=== PATIENT | male | born 1995 | race Caucasian/White ===

== ENCOUNTER 2020-03-22 23:51 | Emergency (ER) | payer BC, SELFPAY ==
--- NOTE | 2020-03-22 23:45 | RT.EKG_ITS ---
APPROVED REPORT Exam: Resting ECG Patient Location: E HR:78 bpm ECG Measurements Heart Rate 78 AXIS WI 164 P 67 QRSd 104 QRS 59 QT 375 T 42 QTc 428 <Conclusion> Sinus rhythm...normal P axis, V-rate 60- 99
[2020-03-22 23:54] VITALS: BP 159/94; PULSE 88; RESP 16; TEMP 36.8; O2SAT 99
[2020-03-22 23:56] VITALS: RESP 16
--- NOTE | 2020-03-22 23:57 | ED.GENADUL_ITS ---
Discharge Plan Disposition Patient Disposition: HOME Condition: Stable Discharge Details Chief Complaint: Chest Pain Clinical Impression: Chest pain Primary Care Provider: Felix Stephenson ED Provider: Juan Huggins Home Meds and New Rx's Prescriptions: No Action No Known Home Meds RF: 0 Discharge Instructions Instructions: Chest Pain (ED) Additional Instructions: your blood work and ekg did not show any evidence of a heart attack, I suspect your symptoms could be due to stress I placed you on our follow up list to get set up with a primary care provider and to recheck your blood pressure since it was mildly elevated here if you feel more ill, have worsening pain or difficulty breathing return to the emergency department Medical Decision Making 24 yo male with no chronic medical problems, is a smoker, comes in with cc of constant mild chest tightness for 3 days. Denies radiation of pain and no diaphoresis, n/v, no dyspnea and no fevers. States he has been under a lot of stress recently. He arrives hd stable speaking in full sentences with clear lungs, no jvd or leg swelling. Denies drug use . No calf pain, Clear lungs without murmurs. I suspect this is anxiety induced chest pain from his stress, heart score is 2 so will check troponin. Wells low and perc negative so doubt PE. Normal vascular exam and no tearing chest pain so doubt dissection. Clear lungs, no pleuritic pain, no cough or fever so unlikely ptx vs pna and do not feel xray indicated. pt remains hd stable speaking in full sentences in no distress conversing normally. Labs unremarkable, given over 4 hours of symptoms do not feel delta troponin indicated. Will have him f/u with a pcp regarding his htn here and return precautions given Differential Diagnosis Differential Diagnosis: nstemi, stress, anxiety Lab Data Lab results reviewed: Yes I reviewed the patient's lab results. ECG Data Attestation: I personally reviewed and interpreted this ECG (s) as follows: Prior ECG tracings: not available for review Interpretation: sinus rhythm, rate of 78, pr 164, no acute st t wave ischemic findings HPI General Mode of arrival: ambulatory . Date/Time Provider Initiated Documentation: 03/22/20 23:52 . Limitations to Documentation: no limitations . Information obtained by: patient . History of Present Illness 24 year old M presents to the emergency department with the chief complaint of chest tightness, described as mild, Patient started experiencing this day(s) (3) and it has been constant. No relieving factors improve symptom(s), No exacerbating factors reported . Patient did receive the following treatments prior to arrival, none Related Data Home Medications Medication Instructions Recorded Confirmed Unknown [No Known Home Meds] 03/22/20 03/22/20 Allergies Allergy/AdvReac Type Severity Reaction Status Date / Time No Known Allergies Allergy Unverified 03/22/20 23:56 General Stated Complaint: Chest Pain JOSE: 2 Review of Systems All systems reviewed & are unremarkable except as noted in HPI and below Constitutional Constitutional: Denies chills, Denies fever(s) and Denies weakness Cardiovascular Cardiovascular: Denies dyspnea Respiratory Respiratory: Denies cough and Denies dyspnea Gastrointestinal Gastrointestinal: Denies abdominal pain, Denies nausea and Denies vomiting Genitourinary Genitourinary: Denies dysuria Musculoskeletal Musculoskeletal: Denies joint swelling Integumentary/Breasts Skin/Breast: Denies rash Neurologic Neurologic: Denies weakness [facility] Social History Smoking/Tobacco Use Status: Current every day Alcohol Intake: never Drug use: Never Substance use type: does not use Do you feel safe at home: Yes Do you feel safe in your relationship?: Yes Exam Const General: no acute distress Orientation: alert HENMT Head: normal to inspection Ears: external ears normal General nose exam: external nose normal Mouth: moist mucous membranes Eyes General: appearance normal, both eyes and all related structures Neck Neck: normal visual inspection Resp Effort & Inspection: normal respiratory effort and able to speak in complete sentences Cardio Rate: regular rate Skin General skin exam: no rashes or lesions noted Neuro General: patient alert and patient oriented x3 Extrem General: normal to inspection Psych Mental Status: mental status grossly normal Course Vital Signs Vital signs: Vital Signs Temperature 36.8 C 03/22/20 23:54 Pulse 88 03/22/20 23:54 Respiratory Rate 16 03/22/20 23:54 Blood Pressure 159/94 H 03/22/20 23:54 Pulse Oximetry 99 03/22/20 23:54 Temperature 36.8 C 03/22/20 23:54 Temperature Source Skin 03/22/20 23:54 Pulse 88 03/22/20 23:54 Respiratory Rate 16 03/22/20 23:54 Blood Pressure 159/94 H 03/22/20 23:54 Blood Pressure Position Supine 03/22/20 23:54 Pulse Oximetry 99 03/22/20 23:54 Oxygen Delivery Method Room Air 03/22/20 23:54 Oxygen Flow Rate 0 03/22/20 23:54 Pain Level 0 03/22/20 23:54
[2020-03-23 00:13] LABS: Abs Immature Grans 0.01 10^3/uL (0.0-0.06); Absolute Basophil Count 0.02 10^3/uL (0.0-0.2); Absolute Eosinophil Count 0.13 10^3/uL (0.0-0.7); Absolute Lymphocyte Count 2.51 10^3/uL (1.2-3.4); Absolute Monocyte Count 0.85 10^3/uL (0.1-0.8); Absolute Neutrophil Count 2.89 10^3/uL (1.2-6.7); Basophils % 0.3; HCT 42.9 % (40.0-50.0); HGB 14.8 g/dL (13.5-17.5); Immature Grans % 0.2; Lymphocytes % 39.2; MCHC 34.5 % (32.0-36.0); MPV 10.2 fL (8.0-11.0); Monocytes % 13.3; Platelet Count 199 10^3/uL (130-400); RBC 4.93 10^6/uL (4.36-5.78); RDW 12.1 % (11.8-14.1); RDW-SD 38.8 fL; WBC 6.41 10^3/uL (4.4-10.8)
[2020-03-23 00:29] LABS: Anion Gap 7.3 mmol/L (3-11); BUN 15 mg/dL (7-18); CO2 29.7 mmol/L (21.0-32.0); CREATININE 1.01 mg/dL (0.70-1.30); Chloride 103 mmol/L (98-107); Glucose 104 mg/dL (74-106); Potassium 3.8 mmol/L (3.5-5.1); Sodium 140 mmol/L (136-145)
[2020-03-23 00:30] LABS: Troponin I < 0.05 ng/mL (<0.06)
--- NOTE | 2020-05-05 09:46 | CMACTNOTE_ITS ---
- If Service Date Differs Date of service: 05/05/20 Time of Service: 09:46 Care Management Activity Note EVONNE returns a telephone call to Bjorn regarding his health insurance. Bjorn provides his [facility] health insurance information, which is then relayed to the Access Dept so Bjorn's medical chart can be updated.
== END 2020-03-23 00:45 | disposition home or self-care (01) ==
LOC: ER 03-23 00:50
PROVIDERS: Emergency Provider Emergency Medicine; PCP Physician Assistant Medical
DX: R07.89 Other chest pain (principal); F43.8 Other reactions to severe stress; R03.0 Elevated blood-pressure reading, without diagnosis of hypertension; F17.210 Nicotine dependence, cigarettes, uncomplicated
CPT/HCPCS: 36415; 80048; 93005; 99284; 84484; 85025; 93010

== ENCOUNTER 2020-10-26 09:10 | Emergency (ER) | payer BC, SELFPAY ==
--- NOTE | 2020-10-26 09:15 | RT.EKG_ITS ---
APPROVED REPORT Exam: Resting ECG Patient Location: E HR:69 bpm ECG Measurements Heart Rate 69 AXIS LA 155 P 54 QRSd 104 QRS 44 QT 394 T 23 QTc 424 Conclusion Sinus arrhythmia...V-rate 57- 76, variation>10%
[2020-10-26 09:19] VITALS: PULSE 89; TEMP 36.6; O2SAT 98
[2020-10-26 09:33] VITALS: BP 128/73
--- NOTE | 2020-10-26 09:34 | W.ED.GENAD ---
Discharge Plan Disposition Patient Disposition: HOME Condition: Stable Discharge Details Chief Complaint: Chest Pain Clinical Impression: Chest pain Primary Care Provider: Jeremiah Duffy ED Provider: Juan Huggins Home Meds and New Rx's Prescriptions: No Action No Known Home Meds RF: 0 Discharge Instructions Instructions: Chest Pain (ED) Additional Instructions: follow up as scheduled with your primary care provider if you have worsening pain, feel more ill or difficulty breathing return to the emergency department Stand Alone Forms: Work Release Medical Decision Making 24 yo male with no chronic medical problems who has a diagnosis of anxiety per patient and not on meds, is a smoker but denies alcohol or drug use comes in with chest pain. STates he gets intermittent episodes lasting a few minutes of anterior sharp chest pain over the past year. States he had an episode earlier this morning and decided to come here for an evaluation. He denies diaphoresis, n/v, dyspnea. He appears anxious on exam and has no abdominal tenderness, no murmurs, clear lungs, normal neurovascular exam as well, no jvd or leg swelling or calf pain. His heart score is 2 as he has a family history of heart disease per patient, will obtain troponin. Wells score low and perc negative so doubt PE at this time. No tearing back pain, normal vascular exam and symptoms not consistent with dissection so do not feel cta indicated. No fever/cough, normal lung sounds so doubt pneumonia or ptx. labs unremarkable and he remains stable and appears well speaking in full sentences. Given a year of symptoms do not feel delta troponin would be of benefit. He has a f/u already with his pcp as well as a stress test scheduled. HE understands to return to the ED immediately for any new or worsening symptoms Differential Diagnosis Differential Diagnosis: nstemi, cad, chest wall pain Medical Records Medical records reviewed: Yes I reviewed the patient's medical records. Lab Data Lab results reviewed: Yes I reviewed the patient's lab results. ECG Data Attestation: I personally reviewed and interpreted this ECG (s) as follows: Prior ECG tracings: available for review Interpretation: sinus rhythm, rate of 70, pr 155, qtc 424, no acute st t wave ischemic findings HPI General Mode of arrival: ambulatory. Date/Time Provider Initiated Documentation: 10/26/20 09:11. Limitations to Documentation: no limitations. Information obtained by: patient. History of Present Illness 24 year old M presents to the emergency department with the chief complaint of chest pain, described as moderate, Patient started experiencing this year(s) (1) and it has been intermittent. No relieving factors improve symptom(s), No exacerbating factors reported . Patient did receive the following treatments prior to arrival, none Related Data Home Medications Medication Instructions Recorded Confirmed Unknown [No Known Home Meds] 03/22/20 03/22/20 Allergies Allergy/AdvReac Type Severity Reaction Status Date / Time No Known Allergies Allergy Unverified 03/22/20 23:56 General Stated Complaint: Chest Pain JOSE: 3 Review of Systems All systems reviewed & are unremarkable except as noted in HPI and below Constitutional Constitutional: Denies chills, Denies fever(s) and Denies weakness Cardiovascular Cardiovascular: Denies dyspnea Respiratory Respiratory: Denies cough and Denies dyspnea Gastrointestinal Gastrointestinal: Denies abdominal pain, Denies nausea and Denies vomiting Musculoskeletal Musculoskeletal: Denies joint swelling Neurologic Neurologic: Denies weakness Psychiatric Psychiatric: Denies depression [facility] Social History Smoking/Tobacco Use Status: Current every day Smoking risk assessment performed?: Yes Alcohol Intake: never Drug use: Never Substance use type: does not use Do you feel safe at home: Yes Do you feel safe in your relationship?: Yes Exam Const General: no acute distress Orientation: alert HENMT Head: normal to inspection Ears: external ears normal General nose exam: external nose normal Mouth: moist mucous membranes Eyes General: appearance normal, both eyes and all related structures Neck Neck: normal visual inspection Chest Chest: normal inspection of the chest Resp Effort & Inspection: normal respiratory effort and able to speak in complete sentences Cardio Rate: regular rate GI Palpation: soft and nontender Skin General skin exam: no rashes or lesions noted Neuro General: patient alert and patient oriented x3 Extrem General: normal to inspection Psych Mental Status: mental status grossly normal Course Vital Signs Vital signs: Vital Signs Temperature 36.6 C 10/26/20 09:19 Pulse 89 10/26/20 09:19 Pulse Oximetry 98 10/26/20 09:19 Temperature 36.6 C 10/26/20 09:19 Temperature Source Oral 10/26/20 09:19 Pulse 89 10/26/20 09:19 Respiratory Effort Non-Labored 10/26/20 09:31 Respiratory Depth Normal 10/26/20 09:31 Respiratory Pattern Normal 10/26/20 09:31 Blood Pressure 128/73 10/26/20 09:33 Pulse Oximetry 98 10/26/20 09:19 Oxygen Delivery Method Room Air 10/26/20 09:19 Oxygen Flow Rate 0 10/26/20 09:19 Pain Level 4 10/26/20 09:31
[2020-10-26] MEDS: Aspirin 81 MG CHEW 324 MG CH (09:43)
[2020-10-26 09:55] LABS: Abs Immature Grans 0.01 10^3/uL (0.0-0.06); Absolute Basophil Count 0.01 10^3/uL (0.0-0.2); Absolute Eosinophil Count 0.03 10^3/uL (0.0-0.7); Absolute Lymphocyte Count 1.55 10^3/uL (1.2-3.4); Absolute Monocyte Count 0.45 10^3/uL (0.1-0.8); Absolute Neutrophil Count 2.62 10^3/uL (1.2-6.7); Basophils % 0.2; Eosinophils % 0.6; HCT 43.7 % (40.0-50.0); HGB 15.2 g/dL (13.5-17.5); Immature Grans % 0.2; Lymphocytes % 33.2; MCHC 34.8 % (32.0-36.0); MCV 86.4 fL (80-95); MPV 10.1 fL (8.0-11.0); Monocytes % 9.6; Neutrophils % 56.2; Nucleated RBC 0 %; Platelet Count 205 10^3/uL (130-400); RBC 5.06 10^6/uL (4.36-5.78); RDW 12.1 % (11.8-14.1); RDW-SD 38.7 fL; WBC 4.67 10^3/uL (4.4-10.8)
[2020-10-26 10:08] LABS: ALT 24 U/L (16-63); AST 13 U/L (15-37); Albumin 4.2 g/dL (3.4-5.0); Alkaline Phosphatase 65 U/L (46-116); Anion Gap 8.1 mmol/L (3-11); BUN 11 mg/dL (7-18); Bilirubin, Total 0.3 mg/dL (0.2-1.0); CO2 26.9 mmol/L (21.0-32.0); CREATININE 0.9 mg/dL (0.70-1.30); Chloride 107 mmol/L (98-107); Glucose 90 mg/dL (74-106); Potassium 3.6 mmol/L (3.5-5.1); Sodium 142 mmol/L (136-145); Total Protein 7.2 g/dL (6.4-8.2)
[2020-10-26 10:10] LABS: Troponin I < 0.05 ng/mL (<0.06)
[2020-10-26 10:26] VITALS: BP 126/83; PULSE 82; RESP 18; O2SAT 98
== END 2020-10-26 10:34 | disposition home or self-care (01) ==
PROVIDERS: Emergency Provider Emergency Medicine; PCP Physician Assistant Medical
DX: R07.89 Other chest pain (principal); F41.9 Anxiety disorder, unspecified
CPT/HCPCS: 36415; 80053; 93005; 99284; 84484; 85025; 93010

== ENCOUNTER 2022-01-04 18:14 | Emergency (ER) | payer MEDICAID, SELFPAY ==
[2022-01-04 18:40] VITALS: BP 126/87; PULSE 104; RESP 16; TEMP 37.1; O2SAT 97
--- NOTE | 2022-01-04 19:08 | ED.GENADUL_ITS ---
Discharge Plan Disposition Patient Disposition: HOME Condition: Stable Discharge Details Clinical Impression: Abrasion, corneal Primary Care Provider: Jeremiah Duffy ED Provider: Arianna Caceres Home Meds and New Rx's Prescriptions: New ketorolac [Acular LS] 0.4 % drops 1 drp ophthalmic (eye) QID Qty: 5 0RF Discharge Instructions Instructions: Corneal Abrasion (ED) Additional Instructions: Erythromycin, half-inch strip 3 times daily Take ibuprofen 600 mg every 8 hours with food as needed for pain Refrain from rubbing eye Follow[facility] with [facility] with persistent pain longer than 72 hours or with any vision change Referrals: Jeremiah Duffy [Primary Care Provider] - Medical Decision Making Patient appears well, he has a corneal abrasion His visual acuity is 20/20 in the affected eye, OD, and 2016 in the unaffected eye, no F OU is 2020 Patient referred to to be, placed on erythromycin and given a prescription for Acular Return precautions discussed and patient expressed understanding Medical Records Medical records reviewed: Yes I reviewed the patient's medical records. Lab Data Lab results reviewed: Yes I reviewed the patient's lab results. ECG Data Prior ECG tracings: available for review HPI General Date/Time Provider Initiated Documentation: 01/04/22 18:36 . HPI Narrative: This 26-year-old gentleman presents with injury to right eye approximately an hour prior to arrival. He states that he was cutting with a running rotating and a piece of wood went into his eye. He does not currently have a high impact. He denies any vision change. He denies any headache. Patient immediately removed a piece of wood. Denies current corrective lens use. Related Data Home Medications Medication Instructions Recorded Confirmed ketorolac 0.4 % eye drops (Acular 1 drp ophthalmic (eye) QID #5 mL 01/04/22 LS) Previous Rx's Medication Instructions Recorded ketorolac 0.4 % eye drops (Acular 1 drp ophthalmic (eye) QID #5 mL 01/04/22 LS) Allergies Allergy/AdvReac Type Severity Reaction Status Date / Time No Known Allergies Allergy Unverified 01/04/22 18:45 General Stated Complaint: EyeProblem JOSE: 4 Review of Systems All systems reviewed & are unremarkable except as noted in HPI and below PFSH All Active Problems (Updated 05/12/22 @ 19:08 by MICHAELA Greer) Chest pain (Acute) Abrasion, corneal (Acute) Social History Smoking/Tobacco Use Status: Current every day Tobacco Type: cigarettes Smoking risk assessment performed?: Yes Alcohol Intake: never Drug use: Never Substance use type: does not use Do you feel safe at home: Yes Do you feel safe in your relationship?: Yes Exam Const General: cooperative, comfortable and no acute distress Eyes Eyes/upper lids images: 2 1. Corneal abrasion, small piece of wood removed, negative Zulay sign, pupil equal round reactive to light and accommodation, extraocular muscles intact Course Vital Signs Vital signs: Vital Signs Temperature 37.1 C 01/04/22 18:40 Pulse 104 H 01/04/22 18:40 Respiratory Rate 16 01/04/22 18:40 Blood Pressure 126/87 01/04/22 18:40 Pulse Oximetry 97 01/04/22 18:40 Temperature 37.1 C 01/04/22 18:40 Temperature Source Temporal Artery Scan 01/04/22 18:40 Pulse 104 H 01/04/22 18:40 Respiratory Rate 16 01/04/22 18:40 Respiratory Effort 01/04/22 18:42 Blood Pressure 126/87 01/04/22 18:40 Blood Pressure Position Sitting 01/04/22 18:40 Pulse Oximetry 97 01/04/22 18:40 Oxygen Delivery Method Room Air 01/04/22 18:40 Oxygen Flow Rate 0 01/04/22 18:40 Pain Level 4 01/04/22 18:40
[2022-01-04] MEDS: Erythromycin Ophth Oint 3.5 GM TUBE OD (19:23)
== END 2022-01-04 19:25 | disposition home or self-care (01) ==
PROVIDERS: Emergency Provider Physician Assistant; PCP Physician Assistant Medical
DX: S05.01XA Injury of conjunctiva and corneal abrasion without foreign body, right eye, initial encounter (principal); X58.XXXA Exposure to other specified factors, initial encounter
CPT/HCPCS: 99283

== ENCOUNTER 2024-05-06 18:39 | Emergency (ER) | payer MEDICAID, SELFPAY ==
[2024-05-06 18:40] VITALS: BP 151/91; PULSE 106; RESP 10; TEMP 36.4; O2SAT 98
--- NOTE | 2024-05-06 18:45 | DI.RAD_ITS ---
Exam(s) XR SHOULDER RT COMPLETE 2+V EXAM: XR SHOULDER RT COMPLETE 2+V CLINICAL HISTORY: Fall. TECHNIQUE: 2D digital imaging was performed. Five views. COMPARISON: No exams were available for comparison FINDINGS: BONES: No acute fracture is present. No bony destructive lesion is seen. JOINTS: No dislocation present. AC joint is not widened. SOFT TISSUE: Normal. IMPRESSION: Unremarkable radiographs of the right shoulder. DATA REPOSITORY: RADIATION DOSE DELIVERED:
--- NOTE | 2024-05-06 18:45 | DI.RAD_ITS ---
Exam(s) XR CHEST 2V PA LATERAL EXAM: XR CHEST 2V PA LATERAL CLINICAL HISTORY: Fall TECHNIQUE: 2D digital imaging was performed. Two views. COMPARISON: No exams were available for comparison FINDINGS: HEART: Normal size. Aorta: Not dilated. PULMONARY VASCULATURE: Normal. MEDIASTINUM: Unremarkable. LUNGS: Clear. PLEURAL SPACE: No pleural effusion or pneumothorax. BONE:Unremarkable for age. SOFT TISSUES: Unremarkable. IMPRESSION: No acute abnormality. DATA REPOSITORY: RADIATION DOSE DELIVERED:
--- NOTE | 2024-05-06 18:45 | DI.CT_ITS ---
Exam(s) CT HEAD CERVICAL SPINE WO EXAM: CT HEAD CERVICAL SPINE WO CLINICAL HISTORY: Fall, Head Injury. TECHNIQUE: Imaging Protocol: Axial computed tomography images with coronal and sagittal reformatted images were created and reviewed COMPARISON: No exams were available for comparison FINDINGS: Head CT Ventricles and Extra axial spaces: Normal in size and morphology for the patient's age. Hemorrhage: None. Cerebral parenchyma: No evidence of mass or acute infarct. Midline shift: None. Brainstem/Cerebellum: Normal. Calvarium: Normal. Visualized Paranasal sinuses/Mastoids: Clear. Soft tissues: Unremarkable. Cervical Spine CT BONES: Vertebral body heights are maintained. Alignment is normal. There is no evidence of acute frac ture. Disc spaces are maintained. SOFT TISSUES: No paraspinal hematoma. The airway appears intact. No pneumothorax is seen at the lung apices. IMPRESSION: Head CT: No acute abnormality. C-spine CT: no acute abnormality. RADIATION DOSE DELIVERED: 1,338.79mGy.cm Total DLP DATA REPOSITORY: All CT scans at this facility are submitted to the National Radiology Data Registry (NRDR) Dose Index Registry (DIR) with the [employer] (ACR). RADIATION OPTIMIZATION: All CT scans at this facility use at least one of these dose optimization te chniques: automated exposure control; mA and/or kV adjustment per patient size (includes targeted exa ms where dose is matched to clinical indication); or iterative reconstruction.
--- NOTE | 2024-05-06 18:55 | ED.GENADUL_ITS ---
Discharge Plan Disposition Patient Disposition: Home Condition: Stable Discharge Details Clinical Impression: Fall, Closed head injury with concussion Primary Care Provider: None,None ED Provider: Kathi Goldberg Home Meds and New Rx's Prescriptions: No Action No Known Home Meds Discharge Instructions Instructions: Head Injury Observation (DC), Concussion, Adult ED, Preventing F alls ED Additional Instructions: At this time head CT C-spine CT chest x-ray and shoulder x-ray showed no acute fracture no bleeding no dislocation. You will be sore for the next 2 to 3 days. Please be seen by your PCP within the next 3 to 5 days, return to the ER for any confusion, vomiting, worsening headache despite Tylenol ibuprofen, chest abdominal pain blood in your stool or vomit or any concerns. Referrals: Primary Care Provider [Outside] - 5 days HPI General Mode of arrival: ambulatory . Date/Time Provider Initiated Documentation: 05/06/24 18:46 . Limitations to Documentation: no limitations . Information obtained by: patient, RN notes reviewed and old records reviewed . HPI Narrative: 28-year-old male presents to the ER after a fall from approximately 5 feet off a deck. 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 He did hit the right side of his head, scraped his arms and is complaining of right shoulder pain. Unsure of LOC. He denies any chest pain abdominal pain or pelvic pain. He is ambulatory upon arrival to the emergency department. He reports feeling foggy and nauseated. He is slightly tachycardic upon arrival. Related Data Home Medications ?Medication ?Instructions ?Recorded ?Confirmed Unknown [No Known Home Meds] 05/06/24 05/06/24 Allergies Allergy/AdvReac Type Severity Reaction Status Date / Time No Known Allergies Allergy Unverified 05/06/24 18:44 General Stated Complaint: Fall/Non TraumaCriteria JOSE: 3 Review of Systems All systems reviewed & are unremarkable except as noted in HPI and below Exam Narrative Exam Narrative: General: Well Developed, Awake and Alert, conversant. Skin: Warm and Dry HEENT: Head: Scalp hematoma noted to the right parietal area. Normocephalic Eyes: Pupils PERRLA, EOM's intact. No periorbital eccymosis or step off Ears: Canal patent. Tympanic membranes are clear . No de la cruz's sign, no hemptympanum. Nose/Face: Atraumatic. Facial bones nontender to palpation and stable with manipulation. Mouth/Throat: No intraoral trauma. Teeth and mandible are intact. Neck: No midline tenderness, no step off, no deformity to palpation of C-spine. Trachea midline. Chest: No surface trauma. Nontender without crepitus or deformity. Lungs clear to ausculatation bilaterally. Heart: RRR, no rubs, murmurs or gallop. Abdomen: No abrasions, ecchymosis, or surface trauma. Nondistended. Nontender to palpation no guarding, rebound, or rigidity. Pelvis: Nontender to palpation and stable to compression. Femoral pulses strong and equal Extremities: Superficial abrasions, sensation intact. Peripheral pulses intact and equal. Neuro: ANO x4, GCS 15, cranial nerves II through XII intact. Motor and sensory exam nonfocal. Reflexes are symmetric. Course Vital Signs Vital signs: Vital Signs Temperature 36.4 C L 05/06/24 18:40 Pulse 106 H 05/06/24 18:40 Respiratory Rate 10 L 05/06/24 18:40 Blood Pressure 151/91 H 05/06/24 18:40 Pulse Oximetry 98 05/06/24 18:40 Temperature 36.4 C L 05/06/24 18:40 Pulse 106 H 05/06/24 18:40 Respiratory Rate 10 L 05/06/24 18:40 Respiratory Effort Normal 05/06/24 18:45 Blood Pressure 151/91 H 05/06/24 18:40 Pulse Oximetry 98 05/06/24 18:40 Oxygen Delivery Method Room Air 05/06/24 18:40 Oxygen Flow Rate 0 05/06/24 18:40 Pain Level 4 05/06/24 18:40 Medical Decision Making 28-year-old male presents to the ER after a fall from approximately 5 feet off a deck. 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 He did hit the right side of his head, scraped his arms and is complaining of right shoulder pain. Unsure of LOC. He denies any chest pain abdominal pain or pelvic pain. He is ambulatory upon arrival to the emergency department. He reports feeling foggy and nauseated. He is slightly tachycardic upon arrival. CT head and C-spine ordered, right shoulder x-ray and chest x-ray. Zofran and Tylenol p.o. CT head and C-spine within normal limits. X-ray chest within normal limits. X-ray right shoulder within normal limits. Patient discharged with home care, follow-up care and strict return instructions. Patient remained hemodynamically stable alert and oriented throughout the remainder of stay. Imaging Data Radiologic Study: Imaging: CT Scan Radiologist's impression: m: CT Cervical Spine Without Contrast Exam date and time: 05/06/2024 7:04 PM Age: 28 years old Clinical indication: Other: Fall head injury HOME [facility] Preliminary Radiology Report FURNITURE SHAMPOOER (QA) DISCREPANCY? If there is a discrepancy between the preliminary and final interpretation, please notify [facility] via [email or web address] If you do not have access to our QA portal, call our QA team at [phone] CONFIDENTIALITY STATEMENT This report is intended only for the use of the referring physician, and only in accordance with law, If you received this in error, call [phone] Page 2 of 2 TECHNIQUE: Imaging protocol: Computed tomography of the cervical spine without contrast. COMPARISON: No relevant prior studies available. FINDINGS: Bones: The cervical lordosis is normal. Vertebral body heights are maintained. No locked or perched facets. No acute cervical spine fracture. The dens is intact. Atlantoaxial intervals are normal. Disc space heights are normal. Lungs: Lung apices are clear. Soft tissues: Unremarkable. IMPRESSION: No acute cervical spine fracture. Quality:SDOH Health Related Social Needs: No Data to Display PFSH All Active Problems (Updated 05/06/24 @ 20:22 by Kathi Goldberg NP) Closed head injury with concussion (Acute) Fall (Acute) Chest pain (Acute) Social History Smoking/Tobacco Use Status: Current every day Tobacco Type: cigarettes Smoking risk assessment performed?: Yes Alcohol Intake: never Drug use: Never Substance use type: does not use Housing: house Do you feel safe at home: Yes Do you feel safe in your relationship?: Yes
[2024-05-06] MEDS: Acetaminophen 325 MG TAB 650 MG PO (19:03)
[2024-05-06] MEDS: Ondansetron O.D.T. 4 MG TABEF PO (19:03)
--- NOTE | 2024-05-06 19:27 | DI.VRAD_ITS ---
PROCEDURE INFORMATION: Exam: CT Head Without Contrast Exam date and time: 05/06/2024 7:04 PM Age: 28 years old Clinical indication: Other: Fall head injury TECHNIQUE: Imaging protocol: Computed tomography of the head without contrast. COMPARISON: No relevant prior studies available. FINDINGS: Brain: No intracranial hemorrhage or extra-axial fluid collection. No evidence of mass effect or midline shift. Cuellar-white matter differentiation is intact. Cerebral ventricles: No ventriculomegaly. Paranasal sinuses: Unremarkable. No fluid levels. Mastoid air cells: Unremarkable. Bones: No acute calvarial fracture. Soft tissues: Scalp soft tissues are unremarkable. IMPRESSION: No acute intracranial pathology. PROCEDURE INFORMATION: Exam: CT Cervical Spine Without Contrast Exam date and time: 05/06/2024 7:04 PM Age: 28 years old Clinical indication: Other: Fall head injury TECHNIQUE: Imaging protocol: Computed tomography of the cervical spine without contrast. COMPARISON: No relevant prior studies available. FINDINGS: Bones: The cervical lordosis is normal. Vertebral body heights are maintained. No locked or perched facets. No acute cervical spine fracture. The dens is intact. Atlantoaxial intervals are normal. Disc space heights are normal. Lungs: Lung apices are clear. Soft tissues: Unremarkable. IMPRESSION: No acute cervical spine fracture. Dictated and Authenticated by: Aquilino Boswell MD. Ordering:THA Armenta MD
--- NOTE | 2024-05-06 20:11 | DI.VRAD_ITS ---
PROCEDURE INFORMATION: Exam: XR Chest Exam date and time: 05/06/2024 7:10 PM Age: 28 years old Clinical indication: Injury or trauma; Fall; Blunt trauma (contusions or hematomas) TECHNIQUE: Imaging protocol: Radiologic exam of the chest. Views: 2 views. COMPARISON: CT HEAD CERVICAL SPINE WO 05/06/2024 7:04 PM FINDINGS: Lungs: Hyperinflated. No consolidation. Pleural spaces: Unremarkable. No pleural effusion. No pneumothorax. Heart/Mediastinum: Unremarkable. No cardiomegaly. Bones/joints: Unremarkable. IMPRESSION: No acute findings. Dictated and Authenticated by: Micah Mandujano MD. Ordering:THA Armenta MD
--- NOTE | 2024-05-06 20:19 | DI.VRAD_ITS ---
PROCEDURE INFORMATION: Exam: XR Right Shoulder Exam date and time: 05/06/2024 7:12 PM Age: 28 years old Clinical indication: Injury or trauma; Fall; Blunt trauma (contusions or hematomas); Shoulder; Right TECHNIQUE: Imaging protocol: Radiologic exam of the right shoulder. Views: 2 or more views. COMPARISON: CR XR CHEST 2V PA LATERAL 05/06/2024 7:10 PM FINDINGS: Bones/joints: Normal. Soft tissues: Normal. IMPRESSION: No acute findings. Dictated and Authenticated by: Micah Mandujano MD. Ordering:THA Armenta MD
== END 2024-05-06 20:38 | disposition home or self-care (01) ==
LOC: ER 20:22 → RED 20:38
PROVIDERS: Emergency Provider Registered Nurse Emergency
DX: S06.0X0A Concussion without loss of consciousness, initial encounter (principal); M25.511 Pain in right shoulder; F17.210 Nicotine dependence, cigarettes, uncomplicated; W17.89XA Other fall from one level to another, initial encounter; Y93.H3 Activity, building and construction; Y93.89 Activity, other specified
CPT/HCPCS: 99285; 70450; 71046; 72125; 73030; 99284